=== PATIENT | female | born 1985 ===

== ENCOUNTER 2020-05-07 07:08 | Emergency (ER) | payer MEDICARE, MEDICAID ==
[~2020-05-07] VITALS: Ht 154.9 cm; Wt 90.9 kg
[2020-05-07 07:17] VITALS: BP 105/60
== END 2020-05-07 08:17 | disposition left against medical advice (07) ==
LOC: EMS 07:08
DX: M79.603 Pain in arm, unspecified (principal); Z53.21 Procedure and treatment not carried out due to patient leaving prior to being seen by health care provider